=== PATIENT | male | born 1955 | race Caucasian/White ===

== ENCOUNTER 2019-09-08 10:33 | Outpatient (REF) | payer MEDICARE, SELFPAY ==
[2019-09-08 20:55] LABS: HCT 41.6 % (40.0-50.0); HGB 13.9 g/dL (13.5-17.5); Mean Corp. HGB Concentration 33.4 g/dL (32.0-36.0); Mean Corpuscular Hemoglobin 31.2 pg (27.0-33.0); Mean Corpuscular Volume 93.3 fL (80-95); Mean Platelet Volume 9.6 fL (8.0-11.0); Platelet Count 304 x1000/uL (130-400); RBC 4.46 m/cumm (4.50-6.00); RBC Distribution Width 14.6 % (11.8-14.1); White Blood Cell Count 5.85 k/cumm (4.4-10.8)
[2019-09-08 21:05] LABS: ALT 24 U/L (16-63); AST 21 U/L (15-37); Alkaline Phosphatase 58 U/L (46-116); Anion Gap 6.1 mmol/L (3-11); BUN 17 mg/dL (7-18); Bilirubin, Total 0.6 mg/dL (0.2-1.0); CO2 30.9 mmol/L (21.0-32.0); CREATININE 1.09 mg/dL (0.70-1.30); Calcium 9.2 mg/dL (8.5-10.1); Calculated LDL 97 mg/dL (<100); Chloride 105 mmol/L (98-107); Cholesterol 192 mg/dL (<200); Glucose 88 mg/dL (74-106); HDL Cholesterol 76 mg/dL (40-60); Potassium 4.5 mmol/L (3.5-5.1); Sodium 142 mmol/L (136-145); Total Protein 7.3 g/dL (6.4-8.2); Triglyceride 97 mg/dL (<150)
== END 2019-09-08 10:53 ==
LOC: NCHCN 10:33
PROVIDERS: PCP Internal Medicine; Visit Provider Nurse Practitioner Community Health
DX: Z13.0 Encounter for screening for diseases of the blood and blood-forming organs and certain disorders involving the immune mechanism (principal); Z13.6 Encounter for screening for cardiovascular disorders; Z13.228 Encounter for screening for other metabolic disorders; R69 Illness, unspecified
CPT/HCPCS: 80053; 80061; 85027

== ENCOUNTER 2022-04-22 18:28 | Outpatient (REF) | payer MEDICARE, SELFPAY ==
[2022-04-22 15:27] LABS: Anion Gap 8.9 mmol/L (3-11); BUN 16 mg/dL (7-18); CO2 27.1 mmol/L (21.0-32.0); CREATININE 1.1 mg/dL (0.70-1.30); Calcium 9.1 mg/dL (8.5-10.1); Chloride 107 mmol/L (98-107); Estimated GFR 73.12 (mL/min/1.73m2); Glucose 123 mg/dL (74-106); Potassium 4.1 mmol/L (3.5-5.1); Sodium 143 mmol/L (136-145)
[2022-04-23 10:11] LABS: Hepatitis C Ab w Rflx HCV PCR Negative (Negative)
[2022-04-23 11:33] LABS: HIV-1/2 Ag & Ab Screen Negative (Negative)
== END 2022-04-22 18:29 | disposition home or self-care (01) ==
LOC: NCHCN 18:28
PROVIDERS: PCP Internal Medicine; Visit Provider Nurse Practitioner Family
DX: Z00.00 Encounter for general adult medical examination without abnormal findings (principal); Z11.59 Encounter for screening for other viral diseases; Z11.4 Encounter for screening for human immunodeficiency virus [HIV]
CPT/HCPCS: 80048; 86803; 87389

== ENCOUNTER 2022-09-10 13:53 | Outpatient (REF) | payer MEDICARE, SELFPAY ==
[2022-09-10 17:56] LABS: Vitamin D 25 Total 26.7 ng/mL (30-100)
[2022-09-10 17:57] LABS: ALT 33 U/L (16-63); AST 30 U/L (15-37); Alkaline Phosphatase 47 U/L (46-116); Anion Gap 4.7 mmol/L (3-11); BUN 22 mg/dL (7-18); Bilirubin, Total 0.6 mg/dL (0.2-1.0); CO2 30.3 mmol/L (21.0-32.0); CREATININE 1.1 mg/dL (0.70-1.30); Calcium 9.1 mg/dL (8.5-10.1); Calculated LDL 120 mg/dL (<100); Chloride 106 mmol/L (98-107); Cholesterol 209 mg/dL (<200); Estimated GFR 73.12 (mL/min/1.73m2); Folate 9.9 ng/mL (8.6-20.0); Glucose 86 mg/dL (74-106); HDL Cholesterol 73 mg/dL (40-60); Potassium 3.9 mmol/L (3.5-5.1); Sodium 141 mmol/L (136-145); TSH (W/Ref FT4) 2.71 uIU/mL (0.36-3.74); Total Protein 7.6 g/dL (6.4-8.2); Triglyceride 81 mg/dL (<150); Vitamin B12 305 pg/mL (193-986)
== END 2022-09-10 13:54 | disposition home or self-care (01) ==
LOC: NCHCN 13:53
PROVIDERS: PCP Internal Medicine; Visit Provider Family Medicine
DX: Z13.6 Encounter for screening for cardiovascular disorders (principal); I10 Essential (primary) hypertension; R41.3 Other amnesia; R53.83 Other fatigue
CPT/HCPCS: 80053; 80061; 82306; 82607; 82746; 84443

== ENCOUNTER 2023-11-26 10:34 | Outpatient (REF) | payer MEDICARE, SELFPAY ==
[2023-11-26 17:10] LABS: Anion Gap 5.8 mmol/L (3-11); BUN 16 mg/dL (7-18); CO2 30.2 mmol/L (21.0-32.0); Calcium 9.3 mg/dL (8.5-10.1); Calculated LDL 76 mg/dL (<100); Chloride 105 mmol/L (98-107); Cholesterol 173 mg/dL (<200); Estimated GFR 81.47 (mL/min/1.73m2); Glucose 82 mg/dL (74-106); HDL Cholesterol 88 mg/dL (40-60); Sodium 141 mmol/L (136-145); Triglyceride 47 mg/dL (<150)
== END 2023-11-26 10:35 | disposition home or self-care (01) ==
LOC: NCHCN 10:34
PROVIDERS: PCP Internal Medicine; Visit Provider Internal Medicine
DX: I10 Essential (primary) hypertension (principal); E78.5 Hyperlipidemia, unspecified
CPT/HCPCS: 80048; 80061

== ENCOUNTER 2025-04-27 10:08 | Outpatient (REF) | payer MEDICARE, SELFPAY ==
[2025-04-27 15:58] LABS: Cholesterol 211 mg/dL (<200); HDL Cholesterol 84 mg/dL (>40)
[2025-04-27 22:47] LABS: PSA, Screening 1.9 ng/mL (<=6.5)
== END 2025-04-27 10:09 | disposition home or self-care (01) ==
LOC: NCHCN 10:08
PROVIDERS: PCP Internal Medicine; Visit Provider Family Medicine
DX: R35.1 Nocturia (principal); E78.5 Hyperlipidemia, unspecified
CPT/HCPCS: 80061; 84153